=== PATIENT | male | born 1945 | race Asian ===

== ENCOUNTER 2018-06-14 12:46 | Emergency (ER) | payer MEDICARE, OTHER ==
[~2018-06-14] VITALS: Ht 165.1 cm; Wt 64.5 kg
[2018-06-14] MEDS ORDERED: ATOR40TA28 PO (13:09)
[2018-06-14] MEDS ORDERED: ALLO100T PO (13:09)
[2018-06-14] MEDS ORDERED: AMLO-512 PO (13:09)
[2018-06-14] MEDS ORDERED: LISI-662 PO (13:09)
[2018-06-14] MEDS ORDERED: PIOG45TA4 PO (13:09)
[2018-06-14] MEDS ORDERED: ATEN25TA PO (13:09)
[2018-06-14] MEDS ORDERED: COLC0.6T67 PO (13:09)
[2018-06-14] MEDS ORDERED: METF-960 PO (13:09)
[2018-06-14 16:10] VITALS: BP 138/66
== END 2018-06-14 17:48 | disposition home or self-care (01) ==
LOC: EMS 12:48
DX: S50.312A Abrasion of left elbow, initial encounter (principal); S00.01XA Abrasion of scalp, initial encounter; E11.9 Type 2 diabetes mellitus without complications; E78.00 Pure hypercholesterolemia, unspecified; I10 Essential (primary) hypertension; Z79.84 Long term (current) use of oral hypoglycemic drugs; Z79.899 Other long term (current) drug therapy; W01.0XXA Fall on same level from slipping, tripping and stumbling without subsequent striking against object, initial encounter; Y93.89 Activity, other specified; Y92.512 Supermarket, store or market as the place of occurrence of the external cause; Y99.8 Other external cause status
CPT/HCPCS: 70450

== ENCOUNTER 2021-08-25 09:37 | Emergency (ER) | payer MEDICARE, OTHER ==
[~2021-08-25] VITALS: Ht 165.1 cm; Wt 58.2 kg
[~2021-08-25 09:37] MED LIST: ALLO-97 PO; AMLO-258 PO; ATEN-73 PO; ATOR40TA28 PO; COLC0.6T73 PO; LISI-894 PO; METF-1211 PO; PIOG45TA4 PO
[2021-08-25] MEDS ORDERED: ASPI-1450 PO (10:08)
[2021-08-25] MEDS ORDERED: OXYB5TAB20 PO (10:08)
[2021-08-25 11:45] VITALS: BP 135/77
== END 2021-08-25 12:48 | disposition home or self-care (01) ==
LOC: EMS 09:40
DX: R05.9 Cough, unspecified (principal); R91.8 Other nonspecific abnormal finding of lung field; E11.9 Type 2 diabetes mellitus without complications; E78.00 Pure hypercholesterolemia, unspecified; I10 Essential (primary) hypertension; M10.9 Gout, unspecified
CPT/HCPCS: 71045; 82962; 99283